=== PATIENT | male | born 1990 | race Caucasian/White ===

== ENCOUNTER 2024-12-16 12:47 | Emergency (ER) | payer OTHER ==
[2024-12-16 12:56] VITALS: BP 142/95; PULSE 97; RESP 18; TEMP 98.4; BMI 28.3
== END 2024-12-16 14:04 | disposition home or self-care (01) ==
LOC: JERFT 12:47
DX: R50.9 Fever, unspecified (principal); R06.02 Shortness of breath; R05.9 Cough, unspecified; J02.9 Acute pharyngitis, unspecified
CPT/HCPCS: 87637-QW; 99283-25